=== PATIENT | male | born 1960 | race African-American/Black ===

== ENCOUNTER 2018-07-16 05:31 | Emergency (ER) | payer MEDICARE, MEDICAID ==
[~2018-07-16] VITALS: Ht 172.7 cm; Wt 81.0 kg
--- NOTE | 2018-07-16 05:51 | NUR ---
PT BIB [facility] FOR SI. PT ADMITS TO DRINKING. PT IS TEAARFUL BUT HAS NO PLAN. ROOM SECURED AND 2 BAGS OF BELONGINGS SECURED. VSS. PA AT BEDSIDE
--- NOTE | 2018-07-16 06:23 | NUR ---
REPORT TO JOHANNE SCHULTZ
[2018-07-16 06:24] LABS: ALANINE AMINOTRANSFERASE 69 U/L (12-78); ALBUMIN 3.7 g/dL (3.4-5.0); ANION GAP 15 mmol/L (5-15); CALCIUM 8.6 mg/dL (8.5-10.1); CHLORIDE 111 mmol/L (98-107); SALICYLATE LEVEL 3.4 mg/dL (2.8-20.0)
[2018-07-16 06:27] LABS: CREATININE 0.99 mg/dL (0.7-1.3)
[2018-07-16 06:28] LABS: ALKALINE PHOSPHATASE 125 U/L (45-117); BILIRUBIN,TOTAL 0.4 mg/dL (0.2-1.0); TOTAL PROTEIN 8.5 g/dL (6.4-8.2)
[2018-07-16 06:29] LABS: ACETAMINOPHEN < 2 mcg/mL (10-30)
[2018-07-16 06:33] LABS: MEAN CORPUSCULAR HEMOGLOBIN 29.6 pg (27.5-34.5); MEAN CORPUSCULAR VOLUME 92.6 fL (81-97); MEAN PLATELET VOLUME 7.7 fL (7.4-10.4); PLATELET COUNT 414 x10^3/uL (130-400); RED BLOOD COUNT 4.82 x10^6/uL (4.38-5.82); RED CELL DISTRIBUTION WIDTH 15.8 % (9.4-14.8)
[2018-07-16 06:52] LABS: MD YES
--- NOTE | 2018-07-16 06:59 | NUR ---
REPORT TO SURINDER SCHULTZ.
[2018-07-16 07:07] LABS: NRBC % (MANUAL) 2 % (0-1); SEG#(MANUAL) 4.14 x10^3/uL (1.8-6.8); SEGS% (MANUAL) 36 % (42-75)
[2018-07-16 07:09] LABS: LYMPHS% (MANUAL) 60 % (22-44); MONOS#(MANUAL) 0.46 x10^3/uL (0.3-2.7); MONOS% (MANUAL) 4 % (2-9)
[2018-07-16 07:11] LABS: ANISOCYTOSIS 1+
--- NOTE | 2018-07-16 07:14 | NUR ---
PT PROVIDED WITH WATER CUP X2, AND URINAL PER REQUEST. NO ACUTE S/S OF DISTRESS. SLURRED SPEECH. SITTER MONITORING FROM [facility]
[2018-07-16 07:15] LABS: <PLATELET ESTIMATE> INCREASED; <PLT MORPHOLOGY> NORMAL PLT MORPH
--- NOTE | 2018-07-16 08:22 | NUR ---
CALLED NANO HUMPHRIES [phone] ON BEHALF OF PT WHO WAS STAYING IN ROOM 8. FRAN (HOT STAFF) SAYS SHE WILL SECURE HIS BELONGINGS. PT MAY CONTACT FRAN OR SALVADOR ONCE DC TO RETRIEVE BELONGINGS
[2018-07-16 08:32] LABS: AMPHETAMINE SCREEN, URINE Negative (Negative); BARBITURATE SCREEN, URINE Negative (Negative); BENZODIAZEPINE SCREEN, URINE Negative (Negative); CANNABINOID SCREEN, URINE Positive (Negative); COCAINE SCREEN, URINE Negative (Negative); METHADONE SCREEN, URINE Negative (Negative); OPIATE SCREEN, URINE Negative (Negative)
--- NOTE | 2018-07-16 08:48 | NUR ---
PT PROVIDED WITH MEAL TRAY, DENIES FURTHER NEEDS AT THIS TIME
--- NOTE | 2018-07-16 09:09 | NUR ---
REPORT RECEIVED FROM MARION CADENA, PATIENT SAFE IN [facility]
--- NOTE | 2018-07-16 11:56 | NUR ---
PRECEPTOR NOTE: REPORT RECEIVED FROM MARION COHEN.
--- NOTE | 2018-07-16 12:05 | NUR ---
PT A&O, RESPS EVEN AND UNLABORED, PLAN OF CARE EXPLAINED TO PT. PT AWAITING MD REASSESSMENT WHEN SOBER. ROOM SECURE, SITTER MONITORING FROM [facility] FOR SAFETY.
--- NOTE | 2018-07-16 12:16 | NUR ---
Note andraeibeth in EDM - 07/16/18 at 1222 by QUEENIE Report given to RNs Shazia and Kenroy, Patient safe in bed, Breathalyzer at this time 0.207, patient has been updated of the expectation that he needs to continue to sober up before he can be properly assessed for SI. Patient is pleasant, conversant and agreeable to the plan. sitter remains outside room, safety maintained.
--- NOTE | 2018-07-16 12:17 | NUR ---
STARR ORTIZ NOTIFIED PT'S REPEAT BAL .207. EDMD AT BEDSIDE TO REASSESS PT WITH RN. PT IS A&O, DENIES ANY SI AT THIS TIME. PT TO BE DC'D.
[2018-07-16 12:32] VITALS: BP 154/104
--- NOTE | 2018-07-16 12:43 | NUR ---
MOST RECENT VS REVIEWED WITH STARR ORTIZ. PT PROVIDED WITH SI MEAL TRAY.
--- NOTE | 2018-07-16 13:38 | NUR ---
REPORT TO BREAK MARION MERIDA
--- NOTE | 2018-07-16 13:44 | NUR ---
Leah gupta in [facility] - 07/16/18 at 1357 by BRUNO TASK RN: Patient/Caregiver given discharge instructions and they have confirmed that they understand the instructions. Patient ambulatory with steady gait.
[2018-07-16] MEDS ORDERED: ONDANSETRON ODT 4 MG ONE (13:52)
--- NOTE | 2018-07-16 13:58 | NUR ---
D/C INST REVIEWED WITH PT AND QUESTIONS ANSWERED. ONCE PT STARTED TO GET DRESSED HE HAD SUDDEN ONSET OF N/V. DR. ORTIZ UPDATED, ORDER REC'D AND PT MED NOTED.
[2018-07-16] MEDS ORDERED: ONDANSETRON ODT 4 MG PO ONE (14:00)
--- NOTE | 2018-07-16 14:15 | NUR ---
PT N/V IMPROVED WITH ZOFRAN. PT UPRIGHT, DRESSED AND DENIES NAUSEA . PT D/C VERBALIZES UNDERSTANDING OF D/C INST. PT UPRIGHT STEADY GAIT.
== END 2018-07-16 14:19 | disposition home or self-care (01) ==
LOC: ED 08:25
DX: F10.220 Alcohol dependence with intoxication, uncomplicated (principal); R45.851 Suicidal ideations; I10 Essential (primary) hypertension; F32.9 Major depressive disorder, single episode, unspecified; Z21 Asymptomatic human immunodeficiency virus [HIV] infection status
CPT/HCPCS: 36415; 80053; 80307; 80329; 85025; 99283; Q0162; G0480